=== PATIENT | female | born 1990 | race Two or more races ===

== ENCOUNTER 2023-06-21 22:31 | Emergency (ER) | payer OTHER ==
[~2023-06-21] VITALS: Ht 165.1 cm; Wt 101.3 kg
[2023-06-21 23:05] VITALS: BP 175/108; PULSE 90; RESP 16; TEMP 98; O2SAT 95
== END 2023-06-21 23:06 | disposition home or self-care (01) ==
LOC: ER 22:31
DX: T16.1XXA Foreign body in right ear, initial encounter (principal); W44.8XXA Other foreign body entering into or through a natural orifice, initial encounter; Y93.89 Activity, other specified; Y92.89 Other specified places as the place of occurrence of the external cause; Y99.8 Other external cause status
CPT/HCPCS: 69200